=== PATIENT | female | born 1965 | race Caucasian/White ===

== ENCOUNTER 2021-03-01 05:16 | Inpatient (IN) | payer BC ==
[2021-02-25 12:53] VITALS: BMI 23.6
[2021-03-01] MEDS ORDERED: ACETAMINOPHEN INJECTION 100 ML IVPB ONE (13:08)
[2021-03-01] MEDS ORDERED: ACETAMINOPHEN 1000 MG/100 ML BAG IVPB ONE (13:10)
[2021-03-01] MEDS ORDERED: ONDANSETRON 4 MG/2 ML VIAL ONE (16:47)
[2021-03-01 18:11] LABS: BASO % 0.7 % (0-2.0); EOS % 2.4 % (0-4.5); HEMOGLOBIN 12.8 GM/dL (10.7-15.3); LYMPH % 18.3 % (8-40); MCH 30.6 pg (25.7-33.7); MCHC 34.7 g/dl (32.0-36.0); MEAN CELL VOLUME 88.2 fl (80-96); MEAN PLT VOLUME 7.4 fl (7.5-11.1); MONO % 10.6 % (3.8-10.2); PLATELET COUNT 291 10^3/uL (134-434); WHITE BLOOD COUNT 9.9 K/mm3 (4.0-10.0)
[2021-03-01 18:16] LABS: INR 1.03 (0.83-1.09); PROTHROMBIN TIME (PATIENT) 11.8 SEC (9.7-13.0)
[2021-03-01 18:19] LABS: ACTIVATED PTT 31.4 SECONDS (25.2-36.5)
[2021-03-01 18:39] LABS: N-TERMINAL BNP 45.4 pg/ml (5-125)
[2021-03-02] MEDS: PANTOPRAZOLE 40 MG TABLET PO SCH (09:41)
[2021-03-02] MEDS: ENOXAPARIN NA (PORCINE) 40 MG/0.4 ML DISP.SYRIN SQ SCH (09:41)
[2021-03-02] MEDS: BUPROPION HCL 100 MG PO SCH ×2 (10:06→21:16)
[2021-03-02 12:08] LABS: BASO % 1.3 % (0-2.0); EOS % 1.9 % (0-4.5); HEMATOCRIT 39.4 % (32.4-45.2); HEMOGLOBIN 13.1 GM/dL (10.7-15.3); LYMPH % 23.4 % (8-40); MCH 29.7 pg (25.7-33.7); MCHC 33.3 g/dl (32.0-36.0); MEAN PLT VOLUME 7.7 fl (7.5-11.1); MONO % 8.5 % (3.8-10.2); NEUT % 64.9 % (42.8-82.8); PLATELET COUNT 323 10^3/uL (134-434); RBC 4.43 M/mm3 (3.60-5.2); RDW 12.9 % (11.6-15.6); WHITE BLOOD COUNT 9.2 K/mm3 (4.0-10.0)
[2021-03-02 12:28] LABS: CALCIUM 9.2 mg/dL (8.5-10.1)
[2021-03-02 12:29] LABS: ALBUMIN 3.5 g/dl (3.4-5.0); BLOOD UREA NITROGEN 19.6 mg/dL (7-18)
[2021-03-02 12:32] LABS: CREATININE 0.8 mg/dL (0.55-1.3)
[2021-03-02 12:33] LABS: BILIRUBIN,TOTAL 0.4 mg/dL (0.2-1)
[2021-03-02 13:12] LABS: ACTIVATED PTT 43.5 SECONDS (25.2-36.5); INR 1.07 (0.83-1.09); PROTHROMBIN TIME (PATIENT) 12.3 SEC (9.7-13.0)
[2021-03-02] MEDS: AMOX TR/POT CLAV 875MG/125MG TABLETS (FP) PO SCH (17:51)
[2021-03-03] MEDS: AMOX TR/POT CLAV 875MG/125MG TABLETS (FP) PO SCH ×2 (07:44→17:40)
[2021-03-03] MEDS: BUPROPION HCL 100 MG PO SCH ×2 (09:20→21:47)
[2021-03-03] MEDS: ENOXAPARIN NA (PORCINE) 40 MG/0.4 ML DISP.SYRIN SQ SCH (09:21)
[2021-03-03] MEDS: PANTOPRAZOLE 40 MG TABLET PO SCH (09:21)
[2021-03-04] MEDS: AMOX TR/POT CLAV 875MG/125MG TABLETS (FP) PO SCH (08:02)
[2021-03-04] MEDS: ENOXAPARIN NA (PORCINE) 40 MG/0.4 ML DISP.SYRIN SQ SCH (09:55)
[2021-03-04] MEDS: BUPROPION HCL 100 MG PO SCH ×2 (09:55→21:05)
[2021-03-04] MEDS: PANTOPRAZOLE 40 MG TABLET PO SCH (09:55)
[2021-03-04] MEDS: CHLORHEXIDINE GLUCONATE 0.12% 15ML CUP MM SCH ×2 (15:46→21:05)
[2021-03-04] MEDS: LACTOBACILLUS ACIDOPHILUS 1 TABLET PO SCH (15:46)
[2021-03-04] MEDS: CLINDAMYCIN 600MG PREMIX IVPB 600 MG/50 ML BAG IVPB SCH (17:20)
[2021-03-05] MEDS: CLINDAMYCIN 600MG PREMIX IVPB 600 MG/50 ML BAG IVPB SCH ×3 (01:20→17:30)
[2021-03-05] MEDS: CHLORHEXIDINE GLUCONATE 0.12% 15ML CUP MM SCH ×2 (09:04→21:07)
[2021-03-05] MEDS: LACTOBACILLUS ACIDOPHILUS 1 TABLET PO SCH (09:05)
[2021-03-05] MEDS: PANTOPRAZOLE 40 MG TABLET PO SCH (09:05)
[2021-03-05] MEDS: BUPROPION HCL 100 MG PO SCH ×2 (09:06→21:07)
[2021-03-05] MEDS: ENOXAPARIN NA (PORCINE) 40 MG/0.4 ML DISP.SYRIN SQ SCH (09:07)
[2021-03-06] MEDS: CLINDAMYCIN 600MG PREMIX IVPB 600 MG/50 ML BAG IVPB SCH ×3 (01:03→18:16)
[2021-03-06] MEDS: PANTOPRAZOLE 40 MG TABLET PO SCH (10:49)
[2021-03-06] MEDS: ENOXAPARIN NA (PORCINE) 40 MG/0.4 ML DISP.SYRIN SQ SCH (10:49)
[2021-03-06] MEDS: LACTOBACILLUS ACIDOPHILUS 1 TABLET PO SCH (10:49)
[2021-03-06] MEDS: BUPROPION HCL 100 MG PO SCH ×2 (10:50→21:03)
[2021-03-06] MEDS: CHLORHEXIDINE GLUCONATE 0.12% 15ML CUP MM SCH ×2 (10:50→21:03)
[2021-03-07] MEDS: CLINDAMYCIN 600MG PREMIX IVPB 600 MG/50 ML BAG IVPB SCH ×3 (01:19→17:40)
[2021-03-07] MEDS ORDERED: guaiFENesin 200 MG/10 ML 10 ML UNIT-DOSE CUPS PO PRN (02:27)
[2021-03-07] MEDS: ACETAMINOPHEN 325 MG TABLET (FP) PO PRN ×2 (02:40→20:44)
[2021-03-07] MEDS: CHLORHEXIDINE GLUCONATE 0.12% 15ML CUP MM SCH ×2 (09:52→21:05)
[2021-03-07] MEDS: LACTOBACILLUS ACIDOPHILUS 1 TABLET PO SCH (09:52)
[2021-03-07] MEDS: PANTOPRAZOLE 40 MG TABLET PO SCH (09:52)
[2021-03-07] MEDS: ENOXAPARIN NA (PORCINE) 40 MG/0.4 ML DISP.SYRIN SQ SCH (09:52)
[2021-03-07] MEDS: BUPROPION HCL 100 MG PO SCH ×2 (09:54→21:05)
[2021-03-07] MEDS ORDERED: PATIENT'S OWN MEDICATION (NON-FORMULARY) (Omeprazole 20 MG Capsule.Dr) PO SCH (20:00)
[2021-03-08] MEDS: CLINDAMYCIN 600MG PREMIX IVPB 600 MG/50 ML BAG IVPB SCH ×3 (01:10→18:00)
[2021-03-08 07:14] LABS: EOS % 3.1 % (0-4.5); HEMATOCRIT 40.2 % (32.4-45.2); HEMOGLOBIN 13.5 GM/dL (10.7-15.3); LYMPH % 22.6 % (8-40); MCH 29.7 pg (25.7-33.7); MCHC 33.5 g/dl (32.0-36.0); MEAN CELL VOLUME 88.7 fl (80-96); MEAN PLT VOLUME 7.7 fl (7.5-11.1); MONO % 9.8 % (3.8-10.2); NEUT % 63.5 % (42.8-82.8); PLATELET COUNT 307 10^3/uL (134-434); RBC 4.53 M/mm3 (3.60-5.2); RDW 12.9 % (11.6-15.6); WHITE BLOOD COUNT 7.2 K/mm3 (4.0-10.0)
[2021-03-08 07:37] LABS: CALCIUM 9.5 mg/dL (8.5-10.1)
[2021-03-08 07:38] LABS: ALBUMIN 3.4 g/dl (3.4-5.0); BLOOD UREA NITROGEN 20.2 mg/dL (7-18)
[2021-03-08 07:41] LABS: CREATININE 0.9 mg/dL (0.55-1.3)
[2021-03-08 07:43] LABS: BILIRUBIN,TOTAL 0.3 mg/dL (0.2-1); TOT PROT 7.1 g/dl (6.4-8.2)
[2021-03-08] MEDS: LACTOBACILLUS ACIDOPHILUS 1 TABLET PO SCH (10:00)
[2021-03-08] MEDS: PANTOPRAZOLE 40 MG TABLET PO SCH (10:01)
[2021-03-08] MEDS: ENOXAPARIN NA (PORCINE) 40 MG/0.4 ML DISP.SYRIN SQ SCH (10:01)
[2021-03-08] MEDS: CHLORHEXIDINE GLUCONATE 0.12% 15ML CUP MM SCH ×2 (10:13→21:49)
[2021-03-08] MEDS: BUPROPION HCL 100 MG PO SCH ×2 (11:24→21:49)
[2021-03-09] MEDS: CLINDAMYCIN 600MG PREMIX IVPB 600 MG/50 ML BAG IVPB SCH ×2 (02:33→10:08)
[2021-03-09] MEDS: BUPROPION HCL 100 MG PO SCH (10:08)
[2021-03-09] MEDS: LACTOBACILLUS ACIDOPHILUS 1 TABLET PO SCH (10:08)
[2021-03-09] MEDS: PANTOPRAZOLE 40 MG TABLET PO SCH (10:08)
[2021-03-09] MEDS: CHLORHEXIDINE GLUCONATE 0.12% 15ML CUP MM SCH (10:08)
[2021-03-09 13:46] VITALS: BP 104/65; PULSE 78; TEMP 97.5
== END 2021-03-09 17:38 | disposition home or self-care (01) | DRG 201 ==
LOC: JRADIR 05:16 → JERBED 16:18 → J2C 16:38 → J4W 20:57
PROVIDERS: ADMIT Family Medicine; ATTEND Family Medicine
PROC: 0BBG3ZX Excision of Left Upper Lung Lobe, Percutaneous Approach, Diagnostic (ICD-10-PCS; 2021-03-01)
PROC: 0W9B30Z Drainage of Left Pleural Cavity with Drainage Device, Percutaneous Approach (ICD-10-PCS; principal; 2021-03-01 10:00)
DX: J93.9 Pneumothorax, unspecified (principal); K21.9 Gastro-esophageal reflux disease without esophagitis; R91.8 Other nonspecific abnormal finding of lung field; K05.10 Chronic gingivitis, plaque induced
CPT/HCPCS: 32408; 32557; 36415; 71045-TC-FY; 71046-TC-FY; 80053; 82550; 83880; 84484; 85025; 85027; 85610; 85730; 88305-TC; 93005; 93010; 94760; C9803; J0131; U0003; U0005

== ENCOUNTER 2021-12-01 14:39 | Observation (INO) | payer BC ==
[2021-12-01 14:51] VITALS: BMI 24.9
[2021-12-01] MEDS ORDERED: ASPIRIN 81 MG CHEWABLE TABLETS PO ONE (15:35)
[2021-12-01] MEDS ORDERED: ASPIRIN 81 MG CHEWABLE TABLETS ONE (16:01)
[2021-12-01 16:43] LABS: BASO % 0.4 % (0-2.0); EOS % 2.5 % (0-4.5); HEMATOCRIT 34.2 % (32.4-45.2); HEMOGLOBIN 11.7 GM/dL (10.7-15.3); LYMPH % 12.1 % (8-40); MCH 29.6 pg (25.7-33.7); MCHC 34.2 g/dl (32.0-36.0); MEAN CELL VOLUME 86.5 fl (80-96); MEAN PLT VOLUME 7.6 fl (7.5-11.1); MONO % 9.9 % (3.8-10.2); NEUT % 75.1 % (42.8-82.8); PLATELET COUNT 253 10^3/uL (134-434); RBC 3.95 M/mm3 (3.60-5.2); RDW 13.6 % (11.6-15.6); WHITE BLOOD COUNT 7.2 K/mm3 (4.0-10.0)
[2021-12-01 16:55] LABS: INR 1.03 (0.83-1.09); PROTHROMBIN TIME (PATIENT) 11.9 SEC (9.7-13.0)
[2021-12-01 16:56] LABS: CALCIUM 9.5 mg/dL (8.5-10.1)
[2021-12-01 16:57] LABS: ACTIVATED PTT 35.6 SECONDS (25.2-36.5); ALBUMIN 3.9 g/dl (3.4-5.0); BLOOD UREA NITROGEN 24.1 mg/dL (7-18)
[2021-12-01 17:01] LABS: TOT PROT 7.3 g/dl (6.4-8.2)
[2021-12-01 17:02] LABS: BILIRUBIN,TOTAL 0.3 mg/dL (0.2-1)
[2021-12-01] MEDS ORDERED: SODIUM CHLORIDE 0.9% 500 ML INFUS.BAG IV ONE (17:24)
[2021-12-01 20:02] VITALS: RESP 18
[2021-12-02 06:33] VITALS: BP 113/62; PULSE 61; TEMP 97.9
[2021-12-02] MEDS ORDERED: LEVOTHYROXINE NA 88 MCG TABLET (FP) PO ONE (08:22)
[2021-12-02] MEDS ORDERED: sitaGLIPtin PHOSPHATE 50 MG TABLET PO ONE (08:23)
[2021-12-02 08:30] LABS: BASO % 0.3 % (0-2.0); EOS % 4.2 % (0-4.5); HEMATOCRIT 33.3 % (32.4-45.2); HEMOGLOBIN 11.6 GM/dL (10.7-15.3); LYMPH % 21.6 % (8-40); MCH 29.9 pg (25.7-33.7); MCHC 34.9 g/dl (32.0-36.0); MEAN CELL VOLUME 85.9 fl (80-96); MEAN PLT VOLUME 7.8 fl (7.5-11.1); MONO % 12.6 % (3.8-10.2); NEUT % 61.3 % (42.8-82.8); PLATELET COUNT 255 10^3/uL (134-434); RBC 3.88 M/mm3 (3.60-5.2); RDW 13.5 % (11.6-15.6); WHITE BLOOD COUNT 5.2 K/mm3 (4.0-10.0)
[2021-12-02 08:41] LABS: CALCIUM 9.3 mg/dL (8.5-10.1)
[2021-12-02 08:42] LABS: ALBUMIN 3.5 g/dl (3.4-5.0); BLOOD UREA NITROGEN 21.4 mg/dL (7-18)
[2021-12-02 08:43] LABS: MAGNESIUM 2.4 mg/dL (1.8-2.4)
[2021-12-02 08:45] LABS: CREATININE 0.8 mg/dL (0.55-1.3)
[2021-12-02 08:46] LABS: BILIRUBIN,TOTAL 0.3 mg/dL (0.2-1); TOT PROT 6.6 g/dl (6.4-8.2)
[2021-12-02] MEDS ORDERED: PANTOPRAZOLE 40 MG TABLET PO ONE (09:26)
[2021-12-02] MEDS ORDERED: sitaGLIPtin PHOSPHATE 50 MG TABLET ONE (09:26)
[2021-12-02] MEDS ORDERED: LEVOTHYROXINE NA 88 MCG TABLET (FP) ONE (09:26)
[2021-12-02] MEDS ORDERED: ASPIRIN 81 MG CHEWABLE TABLETS ONE (09:26)
[2021-12-02] MEDS ORDERED: PANTOPRAZOLE 40 MG TABLET PO SCH (10:00)
[2021-12-02] MEDS ORDERED: ASPIRIN 81 MG CHEWABLE TABLETS PO SCH (10:00)
[2021-12-03] MEDS ORDERED: sitaGLIPtin PHOSPHATE 50 MG TABLET PO SCH (07:00)
[2021-12-03] MEDS ORDERED: LEVOTHYROXINE NA 88 MCG TABLET (FP) PO SCH (07:00)
== END 2021-12-02 16:00 | disposition home or self-care (01) ==
LOC: JER 14:39 → JERBED 15:55
PROVIDERS: ADMIT Internal Medicine; ATTEND Family Medicine
PROC: 3E0337Z Introduction of Electrolytic and Water Balance Substance into Peripheral Vein, Percutaneous Approach (ICD-10-PCS; principal; 2021-12-01)
DX: R07.9 Chest pain, unspecified (principal); K21.9 Gastro-esophageal reflux disease without esophagitis; E11.9 Type 2 diabetes mellitus without complications; E03.9 Hypothyroidism, unspecified; C34.90 Malignant neoplasm of unspecified part of unspecified bronchus or lung; Z86.16 Personal history of COVID-19; Z20.822 Contact with and (suspected) exposure to COVID-19; Z87.891 Personal history of nicotine dependence
CPT/HCPCS: 0241U-QW; 36415; 71046-TC-FY; 80053; 80061; 82550; 83735; 84439; 84443; 84484; 84703; 85025; 85610; 85730; 93005; 93010; 93351; 99285-25; G0378

== ENCOUNTER 2022-04-26 10:06 | Emergency (ER) | payer BC ==
[2022-04-26 12:22] LABS: BASO % 0.1 % (0-2.0); EOS % 2.2 % (0-4.5); HEMATOCRIT 36.5 % (32.4-45.2); HEMOGLOBIN 12.6 GM/dL (10.7-15.3); LYMPH % 8.5 % (8-40); MCH 29.2 pg (25.7-33.7); MCHC 34.5 g/dl (32.0-36.0); MEAN CELL VOLUME 84.4 fl (80-96); MEAN PLT VOLUME 7.6 fl (7.5-11.1); NEUT % 82.2 % (42.8-82.8); PLATELET COUNT 310 10^3/uL (134-434); RBC 4.32 M/mm3 (3.60-5.2); RDW 13.4 % (11.6-15.6); WHITE BLOOD COUNT 9.7 K/mm3 (4.0-10.0)
[2022-04-26 12:29] LABS: INR 1.01 (0.83-1.09); PROTHROMBIN TIME (PATIENT) 11.7 SEC (9.7-13.0)
[2022-04-26] MEDS ORDERED: ASPIRIN 81 MG CHEWABLE TABLETS PO ONE (12:59)
[2022-04-26] MEDS ORDERED: ASPIRIN 81 MG CHEWABLE TABLETS ONE (13:15)
[2022-04-26 13:30] VITALS: RESP 16
[2022-04-26 13:36] LABS: CHLORIDE 106 mmol/L (98-107); SODIUM 141 mmol/L (136-145)
[2022-04-26 13:38] LABS: CALCIUM 9.7 mg/dL (8.5-10.1)
[2022-04-26 13:39] LABS: ALBUMIN 3.7 g/dl (3.4-5.0); ANION GAP 8 MMOL/L (8-16); BLOOD UREA NITROGEN 28.5 mg/dL (7-18); CO2 27 mmol/L (21-32); GLUCOSE,RANDOM 163 mg/dL (74-106); MAGNESIUM 2.2 mg/dL (1.8-2.4)
[2022-04-26 13:42] LABS: CREATININE 1.1 mg/dL (0.55-1.3); SGOT/AST 18 U/L (15-37); SGPT/ALT 24 U/L (13-61)
[2022-04-26 13:43] LABS: BILIRUBIN,TOTAL 0.3 mg/dL (0.2-1)
[2022-04-26 13:44] LABS: TOT PROT 7.3 g/dl (6.4-8.2)
[2022-04-26 13:45] LABS: ALK PHOS 131 U/L (45-117)
[2022-04-26 13:59] VITALS: BMI 25.2
[2022-04-26] MEDS ORDERED: ATORVASTATIN CA 80 MG TABLET (FP) PO ONE (15:14)
[2022-04-26] MEDS ORDERED: HEPARIN NA (PORCINE) 5,000 UNITS/ML 1ML VIAL IVPUSH ONE (15:18)
[2022-04-26] MEDS ORDERED: CLOPIDOGREL BISULFATE 300 MG TABLET PO ONE (15:23)
[2022-04-26] MEDS ORDERED: HEPARIN INFUSION - 25,000 UNITS/500 ML INFUS.BAG IVPB SCH (15:30)
[2022-04-26] MEDS ORDERED: ATORVASTATIN CA 80 MG TABLET (FP) ONE (15:36)
[2022-04-26] MEDS ORDERED: HEPARIN NA (PORCINE) 5,000 UNITS/ML 1ML VIAL ONE (15:36)
[2022-04-26] MEDS ORDERED: CLOPIDOGREL BISULFATE 300 MG TABLET ONE (15:36)
[2022-04-26] MEDS ORDERED: HEPARIN NA (PORCINE) 5,000 UNITS/ML 1ML VIAL IVPUSH PRN ×2 (15:41)
[2022-04-26] MEDS ORDERED: HEPARIN INFUSION - 25,000 UNITS/500 ML INFUS.BAG IVPB ONE (16:08)
[2022-04-26 18:28] VITALS: BP 120/77; PULSE 80; TEMP 98.1
== END 2022-04-26 18:27 | disposition short-term general hospital (02) ==
LOC: JER 10:06
PROC: 3E033GC Introduction of Other Therapeutic Substance into Peripheral Vein, Percutaneous Approach (ICD-10-PCS; principal; 2022-04-26)
PROC: 3E033GC Introduction of Other Therapeutic Substance into Peripheral Vein, Percutaneous Approach (ICD-10-PCS; 2022-04-26)
DX: I21.4 Non-ST elevation (NSTEMI) myocardial infarction (principal); Z20.822 Contact with and (suspected) exposure to COVID-19
CPT/HCPCS: 0241U-QW; 36415; 71046-TC-FY; 80053; 82550; 83735; 84484; 84703; 85025; 85610; 85730; 93005; 93010; 99285-25; J1644

== ENCOUNTER 2022-06-27 05:42 | Observation (INO) | payer BC ==
[2022-06-27 05:45] VITALS: BMI 25.7
[2022-06-27] MEDS ORDERED: ASPIRIN 81 MG CHEWABLE TABLETS PO ONE (06:23)
[2022-06-27 06:34] LABS: BASO % 0.5 % (0-2.0); EOS % 3.7 % (0-4.5); HEMOGLOBIN 12.5 GM/dL (10.7-15.3); LYMPH % 20.2 % (8-40); MCH 29.7 pg (25.7-33.7); MCHC 34.7 g/dl (32.0-36.0); MEAN CELL VOLUME 85.4 fl (80-96); MEAN PLT VOLUME 8.2 fl (7.5-11.1); MONO % 11.1 % (3.8-10.2); NEUT % 64.5 % (42.8-82.8); PLATELET COUNT 272 10^3/uL (134-434); RBC 4.22 M/mm3 (3.60-5.2); RDW 13.4 % (11.6-15.6); WHITE BLOOD COUNT 6.5 K/mm3 (4.0-10.0)
[2022-06-27 06:37] LABS: INR 0.96 (0.83-1.09); PROTHROMBIN TIME (PATIENT) 11.1 SEC (9.7-13.0)
[2022-06-27 06:40] LABS: ACTIVATED PTT 32.6 SECONDS (25.2-36.5)
[2022-06-27] MEDS ORDERED: ASPIRIN 81 MG CHEWABLE TABLETS ONE (06:49)
[2022-06-27 06:54] LABS: POTASSIUM 3.7 mmol/L (3.5-5.1)
[2022-06-27 06:56] LABS: ALBUMIN 3.8 g/dl (3.4-5.0); CALCIUM 9.4 mg/dL (8.5-10.1); MAGNESIUM 2.1 mg/dL (1.8-2.4)
[2022-06-27 07:00] LABS: CREATININE 1.1 mg/dL (0.55-1.3); PHOSPHOROUS 3.8 mg/dL (2.5-4.9); TOT PROT 7.3 g/dl (6.4-8.2)
[2022-06-27 07:02] LABS: BILIRUBIN,TOTAL 0.2 mg/dL (0.2-1)
[2022-06-27] MEDS ORDERED: ACETAMINOPHEN 325 MG TABLET (FP) PO PRN (08:43)
[2022-06-27] MEDS ORDERED: ASPIRIN COATED 81 MG TABLET.EC ONE (09:36)
[2022-06-27] MEDS ORDERED: buPROPion HCL 100 MG TABLET ONE (09:36)
[2022-06-27] MEDS ORDERED: PANTOPRAZOLE 40 MG TABLET PO ONE (09:36)
[2022-06-27] MEDS: PANTOPRAZOLE 40 MG TABLET PO SCH (09:42)
[2022-06-27] MEDS: sitaGLIPtin PHOSPHATE 50 MG TABLET PO SCH (09:42)
[2022-06-27] MEDS: buPROPion HCL 100 MG TABLET PO SCH ×2 (09:42→22:05)
[2022-06-27] MEDS: ASPIRIN COATED 81 MG TABLET.EC PO SCH (09:42)
[2022-06-27] MEDS: INSULIN SLIDING SCALE (NOVOLOG) 1 VIAL SQ SCH ×3 (10:38→21:34)
[2022-06-28] MEDS: sitaGLIPtin PHOSPHATE 50 MG TABLET PO SCH (06:35)
[2022-06-28] MEDS: PANTOPRAZOLE 40 MG TABLET PO SCH ×2 (06:36→09:26)
[2022-06-28] MEDS: INSULIN SLIDING SCALE (NOVOLOG) 1 VIAL SQ SCH ×2 (06:39→11:18)
[2022-06-28] MEDS ORDERED: LEVOTHYROXINE NA 88 MCG TABLET (FP) PO SCH (07:00)
[2022-06-28 07:51] LABS: HEMATOCRIT 34.3 % (32.4-45.2); HEMOGLOBIN 11.9 GM/dL (10.7-15.3); MCH 29.6 pg (25.7-33.7); MCHC 34.8 g/dl (32.0-36.0); MEAN PLT VOLUME 8.3 fl (7.5-11.1); PLATELET COUNT 237 10^3/uL (134-434); RBC 4.03 M/mm3 (3.60-5.2); RDW 13.3 % (11.6-15.6); WHITE BLOOD COUNT 7.4 K/mm3 (4.0-10.0)
[2022-06-28 08:11] LABS: POTASSIUM 3.6 mmol/L (3.5-5.1)
[2022-06-28 08:21] LABS: CALCIUM 9.4 mg/dL (8.5-10.1)
[2022-06-28 08:22] LABS: ALBUMIN 3.6 g/dl (3.4-5.0); BLOOD UREA NITROGEN 24.5 mg/dL (7-18)
[2022-06-28 08:26] LABS: BILIRUBIN,TOTAL 0.4 mg/dL (0.2-1); TOT PROT 6.7 g/dl (6.4-8.2)
[2022-06-28] MEDS: buPROPion HCL 100 MG TABLET PO SCH (09:26)
[2022-06-28] MEDS: ASPIRIN COATED 81 MG TABLET.EC PO SCH (09:26)
[2022-06-28] MEDS ORDERED: ATORVASTATIN CA 40 MG TABLET (FP) PO ONE (09:59)
[2022-06-28] MEDS ORDERED: metoPROLOL SUCCINATE 25 MG TAB.SR.24H (FP) PO SCH (10:00)
[2022-06-28] MEDS ORDERED: NITROGLYCERIN 2% OINTMENT - 1GM PACKET TD SCH (12:00)
[2022-06-28 12:55] VITALS: BP 114/75; PULSE 68; RESP 18; TEMP 98.2
[2022-06-28] MEDS ORDERED: ATORVASTATIN CA 40 MG TABLET (FP) PO SCH (22:00)
== END 2022-06-28 14:33 | disposition short-term general hospital (02) ==
LOC: JER 05:42 → JERBED 07:25 → J4W 12:31
PROVIDERS: ADMIT Family Medicine; ATTEND Family Medicine
DX: I25.119 Atherosclerotic heart disease of native coronary artery with unspecified angina pectoris (principal); R07.9 Chest pain, unspecified; K21.9 Gastro-esophageal reflux disease without esophagitis; R91.8 Other nonspecific abnormal finding of lung field; E11.9 Type 2 diabetes mellitus without complications; Z85.118 Personal history of other malignant neoplasm of bronchus and lung; E03.9 Hypothyroidism, unspecified; Z87.891 Personal history of nicotine dependence
CPT/HCPCS: 36415; 71046-TC-FY; 80053; 80061; 82962; 83036; 83735; 83880; 84100; 84484; 85025; 85027; 85610; 85730; 93005; 93010; 99285-25; C9803-CS; G0378; U0003; U0005

== ENCOUNTER 2022-08-29 14:33 | Observation (INO) | payer BC ==
[2022-08-29 14:41] VITALS: BMI 25.7
[2022-08-29] MEDS ORDERED: ACETAMINOPHEN 1000 MG/100 ML BAG IVPB ONE (15:18)
[2022-08-29] MEDS ORDERED: MAG HYDROX/AL HYDROX/SIMETH 30 ML UNIT-DOSE CUP PO ONE (15:19)
[2022-08-29] MEDS ORDERED: FAMOTIDINE 20 MG/50 ML IVPB 20 MG/50 ML MG IVPB ONE ×2 (15:19→15:55)
[2022-08-29] MEDS ORDERED: ACETAMINOPHEN INJECTION 100 ML IVPB ONE (15:55)
[2022-08-29] MEDS ORDERED: MAG HYDROX/AL HYDROX/SIMETH 30 ML UNIT-DOSE CUP ONE (15:55)
[2022-08-29 16:11] LABS: BASO % 0.4 % (0-2.0); EOS % 2.8 % (0-4.5); HEMOGLOBIN 12.4 GM/dL (10.7-15.3); LYMPH % 18.2 % (8-40); MCH 29.1 pg (25.7-33.7); MCHC 34.3 g/dl (32.0-36.0); MEAN CELL VOLUME 84.7 fl (80-96); MEAN PLT VOLUME 7.7 fl (7.5-11.1); MONO % 9.1 % (3.8-10.2); NEUT % 69.5 % (42.8-82.8); PLATELET COUNT 288 10^3/uL (134-434); RBC 4.25 M/mm3 (3.60-5.2); RDW 13.9 % (11.6-15.6); WHITE BLOOD COUNT 7.3 K/mm3 (4.0-10.0)
[2022-08-29 16:18] LABS: INR 1.1 (0.83-1.09); PROTHROMBIN TIME (PATIENT) 12.7 SEC (9.7-13.0)
[2022-08-29 16:21] LABS: ACTIVATED PTT 28.7 SECONDS (25.2-36.5)
[2022-08-29 16:22] LABS: POTASSIUM 3.9 mmol/L (3.5-5.1)
[2022-08-29 16:24] LABS: BLOOD UREA NITROGEN 24.1 mg/dL (7-18); CALCIUM 9.8 mg/dL (8.5-10.1); MAGNESIUM 2.5 mg/dL (1.8-2.4)
[2022-08-29 16:27] LABS: CREATININE 1.2 mg/dL (0.55-1.3)
[2022-08-29 16:29] LABS: BILIRUBIN,TOTAL 0.4 mg/dL (0.2-1); TOT PROT 7.5 g/dl (6.4-8.2)
[2022-08-29] MEDS ORDERED: ASPIRIN 81 MG CHEWABLE TABLETS PO ONE (19:22)
[2022-08-29] MEDS ORDERED: ASPIRIN 81 MG CHEWABLE TABLETS ONE (19:52)
[2022-08-29] MEDS ORDERED: ALBUTEROL SO4 HFA INHALER IH PRN (22:39)
[2022-08-29] MEDS ORDERED: RANOLAZINE E.R. 500 MG TABLET (FP) ONE (23:10)
[2022-08-29] MEDS ORDERED: INSULIN (NOVOLOG) ASPART 100 UNITS/ML 10ML VIAL ONE (23:12)
[2022-08-29] MEDS: INSULIN SLIDING SCALE (NOVOLOG) 1 VIAL SQ SCH (23:19)
[2022-08-29] MEDS: RANOLAZINE E.R. 500 MG TABLET (FP) PO SCH (23:19)
[2022-08-30] MEDS ORDERED: PANTOPRAZOLE SODIUM 40 MG VIAL IVPUSH ONE (05:02)
[2022-08-30] MEDS ORDERED: MAG HYDROX/AL HYDROX/SIMETH 30 ML UNIT-DOSE CUP PO ONE (05:03)
[2022-08-30 05:44] LABS: BASO % 0.9 % (0-2.0); HEMATOCRIT 36.1 % (32.4-45.2); HEMOGLOBIN 12.3 GM/dL (10.7-15.3); LYMPH % 21.7 % (8-40); MCH 29.3 pg (25.7-33.7); MCHC 34.2 g/dl (32.0-36.0); MEAN CELL VOLUME 85.7 fl (80-96); MEAN PLT VOLUME 7.7 fl (7.5-11.1); MONO % 9.8 % (3.8-10.2); NEUT % 64.6 % (42.8-82.8); PLATELET COUNT 286 10^3/uL (134-434); RBC 4.21 M/mm3 (3.60-5.2); RDW 13.5 % (11.6-15.6); WHITE BLOOD COUNT 6.3 K/mm3 (4.0-10.0)
[2022-08-30] MEDS: MAG HYDROX/AL HYDROX/SIMETH 30 ML UNIT-DOSE CUP PO SCH ×2 (06:00→12:46)
[2022-08-30] MEDS ORDERED: INSULIN SLIDING SCALE (NOVOLOG) 1 VIAL SQ ONE (06:02)
[2022-08-30 06:03] LABS: POTASSIUM 3.8 mmol/L (3.5-5.1)
[2022-08-30 06:05] LABS: CALCIUM 9.3 mg/dL (8.5-10.1)
[2022-08-30 06:06] LABS: ALBUMIN 3.9 g/dl (3.4-5.0)
[2022-08-30] MEDS: INSULIN SLIDING SCALE (NOVOLOG) 1 VIAL SQ SCH ×2 (06:07→12:46)
[2022-08-30 06:09] LABS: CREATININE 1.2 mg/dL (0.55-1.3)
[2022-08-30 06:11] LABS: BILIRUBIN,TOTAL 0.4 mg/dL (0.2-1); TOT PROT 7.5 g/dl (6.4-8.2)
[2022-08-30] MEDS ORDERED: LEVOTHYROXINE NA 88 MCG TABLET (FP) PO SCH (07:00)
[2022-08-30] MEDS ORDERED: ROSUVASTATIN CA 10 MG TABLET PO SCH (10:00)
[2022-08-30] MEDS ORDERED: ASPIRIN COATED 81 MG TABLET.EC PO SCH (10:00)
[2022-08-30] MEDS ORDERED: ISOSORBIDE MONONITRATE 60 MG TAB.SR.24H (FP) PO SCH (10:00)
[2022-08-30] MEDS ORDERED: EMPAGLIFLOZIN 10 MG PO SCH (10:00)
[2022-08-30] MEDS ORDERED: metoPROLOL SUCCINATE 25 MG TAB.SR.24H (FP) PO SCH (10:00)
[2022-08-30] MEDS ORDERED: PANTOPRAZOLE SODIUM 40 MG VIAL IVPUSH SCH (10:00)
[2022-08-30] MEDS ORDERED: buPROPion HCL 100 MG TABLET PO SCH (10:00)
[2022-08-30] MEDS ORDERED: CLOPIDOGREL BISULFATE 75 MG TABLET (FP) PO SCH (10:00)
[2022-08-30] MEDS: RANOLAZINE E.R. 500 MG TABLET (FP) PO SCH (11:20)
[2022-08-30 13:10] VITALS: RESP 18
[2022-08-30] MEDS ORDERED: PANTOPRAZOLE 40 MG TABLET PO SCH (14:50)
[2022-08-30 16:21] VITALS: BP 106/61; PULSE 63; TEMP 98
== END 2022-08-30 16:47 | disposition short-term general hospital (02) ==
LOC: JER 14:33 → JERBED 18:14 → J4S 08-30 00:20
PROVIDERS: ADMIT Internal Medicine; ATTEND Family Medicine
PROC: 3E033NZ Introduction of Analgesics, Hypnotics, Sedatives into Peripheral Vein, Percutaneous Approach (ICD-10-PCS; principal; 2022-08-29)
PROC: 3E033GC Introduction of Other Therapeutic Substance into Peripheral Vein, Percutaneous Approach (ICD-10-PCS; 2022-08-29)
DX: R07.9 Chest pain, unspecified (principal); K21.9 Gastro-esophageal reflux disease without esophagitis; E03.9 Hypothyroidism, unspecified; E11.9 Type 2 diabetes mellitus without complications; Z86.16 Personal history of COVID-19; C34.00 Malignant neoplasm of unspecified main bronchus; Z79.899 Other long term (current) drug therapy; I25.10 Atherosclerotic heart disease of native coronary artery without angina pectoris; I25.2 Old myocardial infarction; Z95.5 Presence of coronary angioplasty implant and graft; K76.0 Fatty (change of) liver, not elsewhere classified
CPT/HCPCS: 0241U-QW; 36415; 71045-TC-FY; 71275-TC; 76705-TC; 80053; 80061; 82550; 82962; 83690; 83735; 84484; 85025; 85379; 85610; 85730; 86850; 86900; 86901; 93005; 93010; 93306-TC; 99285-25; G0378; Q9967

== ENCOUNTER 2022-11-10 20:42 | Observation (INO) | payer BC ==
[2022-11-10] MEDS ORDERED: VERAPAMIL HCL 120 MG E.R. TABLET PO ONE (21:12)
[2022-11-10] MEDS ORDERED: VERAPAMIL HCL 180 MG E.R. TABLET PO ONE (21:13)
[2022-11-10] MEDS ORDERED: ASPIRIN 325 MG TABLET PO ONE (21:38)
[2022-11-10] MEDS ORDERED: PANTOPRAZOLE SODIUM 40 MG VIAL IVPUSH ONE (21:41)
[2022-11-10] MEDS ORDERED: ASPIRIN 325 MG TABLET ONE (21:44)
[2022-11-10] MEDS ORDERED: PANTOPRAZOLE SODIUM 40 MG/100 ML BAG IVPB ONE (21:44)
[2022-11-10] MEDS ORDERED: PANTOPRAZOLE SODIUM 40 MG VIAL ONE (21:49)
[2022-11-10 21:52] LABS: HEMATOCRIT 36.1 % (32.4-45.2); HEMOGLOBIN 12.7 GM/dL (10.7-15.3); MCH 29.7 pg (25.7-33.7); MCHC 35.1 g/dl (32.0-36.0); MEAN CELL VOLUME 84.6 fl (80-96); MEAN PLT VOLUME 7.7 fl (7.5-11.1); PLATELET COUNT 329 10^3/uL (134-434); RBC 4.26 M/mm3 (3.60-5.2); RDW 13.8 % (11.6-15.6); WHITE BLOOD COUNT 9.4 K/mm3 (4.0-10.0)
[2022-11-10 22:05] LABS: INR 1.01 (0.83-1.09); PROTHROMBIN TIME (PATIENT) 11.7 SEC (9.7-13.0)
[2022-11-10 22:07] LABS: ACTIVATED PTT 33.1 SECONDS (25.2-36.5)
[2022-11-10 22:08] LABS: ALBUMIN 3.6 g/dl (3.4-5.0); CALCIUM 9.4 mg/dL (8.5-10.1); MAGNESIUM 2.2 mg/dL (1.8-2.4)
[2022-11-10 22:11] LABS: CREATININE 1.3 mg/dL (0.55-1.3)
[2022-11-10 22:13] LABS: BILIRUBIN,TOTAL 0.4 mg/dL (0.2-1)
[2022-11-10 22:55] LABS: ANISOCYTOSIS 0; MACROCYTOSIS 0
[2022-11-10] MEDS ORDERED: DOCUSATE SODIUM 100 MG CAPSULE (FP) PO PRN (23:51)
[2022-11-11] MEDS ORDERED: ACETAMINOPHEN 1000 MG/100 ML BAG IVPB PRN (00:02)
[2022-11-11 01:30] LABS: PHOSPHOROUS 3.6 mg/dL (2.5-4.9)
[2022-11-11 08:27] LABS: BASO % 0.4 % (0-2.0); EOS % 2.8 % (0-4.5); HEMATOCRIT 36.4 % (32.4-45.2); LYMPH % 18.9 % (8-40); MCH 28.6 pg (25.7-33.7); MCHC 33.1 g/dl (32.0-36.0); MEAN CELL VOLUME 86.5 fl (80-96); MEAN PLT VOLUME 7.5 fl (7.5-11.1); MONO % 9.7 % (3.8-10.2); NEUT % 68.2 % (42.8-82.8); PLATELET COUNT 291 10^3/uL (134-434); RBC 4.21 M/mm3 (3.60-5.2); RDW 13.2 % (11.6-15.6); WHITE BLOOD COUNT 7.4 K/mm3 (4.0-10.0)
[2022-11-11 08:55] LABS: CREATININE 1.1 mg/dL (0.55-1.3)
[2022-11-11] MEDS ORDERED: NITROGLYCERIN SUBLINGUAL 1/150 0.4 MG TAB SL PRN (09:45)
[2022-11-11] MEDS ORDERED: LEVOTHYROXINE NA 88 MCG TABLET (FP) ONE (11:29)
[2022-11-11] MEDS ORDERED: ISOSORBIDE MONONITRATE 60 MG TAB.SR.24H (FP) PO ONE ×2 (11:29→11:36)
[2022-11-11] MEDS ORDERED: ASPIRIN COATED 81 MG TABLET.EC ONE (11:29)
[2022-11-11] MEDS ORDERED: PANTOPRAZOLE 40 MG TABLET PO ONE (11:29)
[2022-11-11] MEDS ORDERED: buPROPion HCL 100 MG TABLET ONE (11:30)
[2022-11-11] MEDS ORDERED: RANOLAZINE E.R. 500 MG TABLET (FP) ONE (11:30)
[2022-11-11] MEDS ORDERED: CLOPIDOGREL BISULFATE 75 MG TABLET (FP) ONE (11:30)
[2022-11-11] MEDS: PANTOPRAZOLE 40 MG TABLET PO SCH (11:39)
[2022-11-11] MEDS: ISOSORBIDE MONONITRATE 60 MG TAB.SR.24H (FP) PO SCH (11:39)
[2022-11-11] MEDS: RANOLAZINE E.R. 500 MG TABLET (FP) PO SCH ×2 (11:39→22:54)
[2022-11-11] MEDS: buPROPion HCL 100 MG TABLET PO SCH (11:39)
[2022-11-11] MEDS: CLOPIDOGREL BISULFATE 75 MG TABLET (FP) PO SCH (11:39)
[2022-11-11] MEDS: ASPIRIN COATED 81 MG TABLET.EC PO SCH (11:39)
[2022-11-11] MEDS: LEVOTHYROXINE NA 88 MCG TABLET (FP) PO SCH (11:39)
[2022-11-11] MEDS ORDERED: ACETAMINOPHEN 325 MG TABLET (FP) ONE (19:59)
[2022-11-11] MEDS: ACETAMINOPHEN 325 MG TABLET (FP) PO PRN (20:03)
[2022-11-11] MEDS: VERAPAMIL HCL 180 MG E.R. TABLET PO SCH (22:55)
[2022-11-11] MEDS: ATORVASTATIN CA 40 MG TABLET (FP) PO SCH (22:58)
[2022-11-12 02:59] VITALS: BMI 26.6
[2022-11-12] MEDS: LEVOTHYROXINE NA 88 MCG TABLET (FP) PO SCH (06:56)
[2022-11-12] MEDS: PANTOPRAZOLE 40 MG TABLET PO SCH (09:12)
[2022-11-12] MEDS: CLOPIDOGREL BISULFATE 75 MG TABLET (FP) PO SCH (09:12)
[2022-11-12] MEDS: ISOSORBIDE MONONITRATE 60 MG TAB.SR.24H (FP) PO SCH (09:12)
[2022-11-12] MEDS: buPROPion HCL 100 MG TABLET PO SCH (09:12)
[2022-11-12] MEDS: RANOLAZINE E.R. 500 MG TABLET (FP) PO SCH ×2 (09:12→21:37)
[2022-11-12] MEDS: ASPIRIN COATED 81 MG TABLET.EC PO SCH (09:12)
[2022-11-12] MEDS ORDERED: morphine CARPU-JECT 4 MG/1 ML DISP.SYRIN IVPUSH ONE ×2 (19:26)
[2022-11-12] MEDS ORDERED: VERAPAMIL HCL 180 MG E.R. TABLET PO ONE (19:35)
[2022-11-12] MEDS ORDERED: ACETAMINOPHEN 1000 MG/100 ML BAG IVPB ONE (19:41)
[2022-11-12] MEDS: ATORVASTATIN CA 40 MG TABLET (FP) PO SCH (21:36)
[2022-11-12] MEDS: VERAPAMIL HCL 180 MG E.R. TABLET PO SCH (21:39)
[2022-11-12] MEDS: METHYL SALICYLATE/MENTHOL OINT 30 GM TUBE TP SCH (22:51)
[2022-11-13] MEDS: LEVOTHYROXINE NA 88 MCG TABLET (FP) PO SCH (06:06)
[2022-11-13] MEDS: ACETAMINOPHEN 325 MG TABLET (FP) PO PRN (08:10)
[2022-11-13] MEDS: ISOSORBIDE MONONITRATE 60 MG TAB.SR.24H (FP) PO SCH (09:00)
[2022-11-13] MEDS: RANOLAZINE E.R. 500 MG TABLET (FP) PO SCH ×2 (09:51→21:12)
[2022-11-13] MEDS: CLOPIDOGREL BISULFATE 75 MG TABLET (FP) PO SCH (09:51)
[2022-11-13] MEDS: PANTOPRAZOLE 40 MG TABLET PO SCH (09:51)
[2022-11-13] MEDS: buPROPion HCL 100 MG TABLET PO SCH (09:51)
[2022-11-13] MEDS: ASPIRIN COATED 81 MG TABLET.EC PO SCH (09:51)
[2022-11-13] MEDS: METHYL SALICYLATE/MENTHOL OINT 30 GM TUBE TP SCH ×2 (09:53→22:09)
[2022-11-13] MEDS ORDERED: ASPIRIN 325 MG TABLET PO ONE (19:28)
[2022-11-13] MEDS: ATORVASTATIN CA 40 MG TABLET (FP) PO SCH (21:12)
[2022-11-13] MEDS: VERAPAMIL HCL 180 MG E.R. TABLET PO SCH (21:12)
[2022-11-14] MEDS: LEVOTHYROXINE NA 88 MCG TABLET (FP) PO SCH (06:20)
[2022-11-14] MEDS ORDERED: RANOLAZINE E.R. 500 MG TABLET (FP) PO SCH (09:09)
[2022-11-14] MEDS: CLOPIDOGREL BISULFATE 75 MG TABLET (FP) PO SCH (10:00)
[2022-11-14] MEDS: PANTOPRAZOLE 40 MG TABLET PO SCH (10:00)
[2022-11-14] MEDS: ASPIRIN COATED 81 MG TABLET.EC PO SCH (10:00)
[2022-11-14] MEDS: ISOSORBIDE MONONITRATE 60 MG TAB.SR.24H (FP) PO SCH (10:00)
[2022-11-14] MEDS: buPROPion HCL 100 MG TABLET PO SCH (10:01)
[2022-11-14] MEDS: METHYL SALICYLATE/MENTHOL OINT 30 GM TUBE TP SCH (10:02)
[2022-11-14 14:18] VITALS: BP 103/74; PULSE 62; RESP 24; TEMP 97.4
== END 2022-11-14 11:03 | disposition home or self-care (01) ==
LOC: JER 20:42 → JERBED 22:54 → J4W 11-11 20:39
PROVIDERS: ADMIT Internal Medicine; ATTEND Family Medicine
PROC: 3E033NZ Introduction of Analgesics, Hypnotics, Sedatives into Peripheral Vein, Percutaneous Approach (ICD-10-PCS; principal; 2022-11-10)
PROC: 3E033GC Introduction of Other Therapeutic Substance into Peripheral Vein, Percutaneous Approach (ICD-10-PCS; 2022-11-10)
DX: I25.10 Atherosclerotic heart disease of native coronary artery without angina pectoris (principal); C34.90 Malignant neoplasm of unspecified part of unspecified bronchus or lung; K21.9 Gastro-esophageal reflux disease without esophagitis; R94.31 Abnormal electrocardiogram [ECG] [EKG]; E78.00 Pure hypercholesterolemia, unspecified; N20.0 Calculus of kidney; R00.0 Tachycardia, unspecified; R25.2 Cramp and spasm; I25.2 Old myocardial infarction; E11.9 Type 2 diabetes mellitus without complications; Z86.16 Personal history of COVID-19; R07.9 Chest pain, unspecified; K76.0 Fatty (change of) liver, not elsewhere classified; E03.9 Hypothyroidism, unspecified; R91.8 Other nonspecific abnormal finding of lung field; E06.3 Autoimmune thyroiditis; Z87.891 Personal history of nicotine dependence; Z95.5 Presence of coronary angioplasty implant and graft
CPT/HCPCS: 36415; 71045-TC-FY; 80048; 80053; 80061; 82550; 82962; 83735; 84100; 84443; 84484; 85025; 85610; 85730; 93005; 93010; 99285-25; G0378

== ENCOUNTER 2023-04-16 16:07 | Observation (INO) | payer BC ==
[2023-04-16 16:31] VITALS: BMI 30.2
[2023-04-16] MEDS ORDERED: ACETAMINOPHEN INJECTION 100 ML IVPB ONE (17:08)
[2023-04-16] MEDS: ACETAMINOPHEN 1000 MG/100 ML BAG IVPB ONE (17:15)
[2023-04-16 17:16] LABS: BASO % 0.9 % (0-2.0); EOS % 1.9 % (0-4.5); HEMATOCRIT 37.7 % (32.4-45.2); HEMOGLOBIN 12.7 GM/dL (10.7-15.3); LYMPH % 17.9 % (8-40); MCH 29.9 pg (25.7-33.7); MCHC 33.7 g/dl (32.0-36.0); MEAN CELL VOLUME 88.7 fl (80-96); MEAN PLT VOLUME 7.4 fl (7.5-11.1); MONO % 10.3 % (3.8-10.2); PLATELET COUNT 262 10^3/uL (134-434); RBC 4.25 M/mm3 (3.60-5.2); RDW 14.1 % (11.6-15.6); WHITE BLOOD COUNT 7.4 K/mm3 (4.0-10.0)
[2023-04-16 17:21] LABS: INR 1.04 (0.83-1.09); PROTHROMBIN TIME (PATIENT) 12.1 SEC (9.7-13.0)
[2023-04-16 17:23] LABS: ACTIVATED PTT 33.8 SECONDS (25.2-36.5)
[2023-04-16 17:35] LABS: POTASSIUM 3.8 mmol/L (3.5-5.1)
[2023-04-16 17:37] LABS: ALBUMIN 3.8 g/dl (3.4-5.0); CALCIUM 9.1 mg/dL (8.5-10.1)
[2023-04-16 17:38] LABS: BLOOD UREA NITROGEN 29.4 mg/dL (7-18)
[2023-04-16 17:42] LABS: BILIRUBIN,TOTAL 0.3 mg/dL (0.2-1); TOT PROT 7.3 g/dl (6.4-8.2)
[2023-04-16 17:45] LABS: N-TERMINAL BNP 230.8 pg/ml (5-125)
[2023-04-16] MEDS ORDERED: RANOLAZINE E.R. 500 MG TABLET (FP) ONE (20:53)
[2023-04-16] MEDS ORDERED: CLOPIDOGREL BISULFATE 75 MG TABLET (FP) ONE (20:53)
[2023-04-16] MEDS ORDERED: NITROGLYCERIN SUBLINGUAL 1/150 0.4 MG TAB ONE (21:32)
[2023-04-16] MEDS: VERAPAMIL HCL 120 MG TABLET PO ONE (21:50)
[2023-04-16] MEDS: CLOPIDOGREL BISULFATE 75 MG TABLET (FP) PO ONE (21:50)
[2023-04-16] MEDS: buPROPion HCL 100 MG TABLET PO ONE (21:50)
[2023-04-16] MEDS: RANOLAZINE E.R. 1,000 MG TABLET (FP) PO ONE (21:50)
[2023-04-16] MEDS: EMPAGLIFLOZIN (JARDIANCE) 10 MG TABLET PO SCH (21:50)
[2023-04-16] MEDS: NITROGLYCERIN SUBLINGUAL 1/150 0.4 MG TAB SL ONE (22:17)
[2023-04-17] MEDS ORDERED: PANTOPRAZOLE 40 MG TABLET PO ONE (06:07)
[2023-04-17] MEDS ORDERED: LEVOTHYROXINE NA 88 MCG TABLET (FP) ONE (06:08)
[2023-04-17] MEDS: LEVOTHYROXINE NA 88 MCG TABLET (FP) PO SCH (06:11)
[2023-04-17] MEDS: PANTOPRAZOLE 40 MG TABLET PO SCH (06:11)
[2023-04-17 07:34] LABS: BASO % 0.5 % (0-2.0); EOS % 2.6 % (0-4.5); HEMATOCRIT 39.5 % (32.4-45.2); HEMOGLOBIN 13.7 GM/dL (10.7-15.3); MCH 30.6 pg (25.7-33.7); MCHC 34.7 g/dl (32.0-36.0); MEAN CELL VOLUME 88.1 fl (80-96); MEAN PLT VOLUME 7.3 fl (7.5-11.1); MONO % 9.1 % (3.8-10.2); NEUT % 68.8 % (42.8-82.8); PLATELET COUNT 279 10^3/uL (134-434); RBC 4.48 M/mm3 (3.60-5.2); RDW 14.2 % (11.6-15.6); WHITE BLOOD COUNT 5.9 K/mm3 (4.0-10.0)
[2023-04-17 07:44] LABS: CALCIUM 9.6 mg/dL (8.5-10.1)
[2023-04-17 07:45] LABS: ALBUMIN 3.7 g/dl (3.4-5.0); BLOOD UREA NITROGEN 25.7 mg/dL (7-18)
[2023-04-17 07:48] LABS: BILIRUBIN,TOTAL 0.3 mg/dL (0.2-1); CREATININE 1.1 mg/dL (0.55-1.3)
[2023-04-17 07:51] LABS: TOT PROT 7.1 g/dl (6.4-8.2)
[2023-04-17] MEDS ORDERED: metoPROLOL SUCCINATE 25 MG TAB.SR.24H (FP) PO ONE (09:32)
[2023-04-17] MEDS: VERAPAMIL HCL 120 MG TABLET PO SCH (09:35)
[2023-04-17] MEDS: metoPROLOL SUCCINATE 25 MG TAB.SR.24H (FP) PO SCH (09:35)
[2023-04-17] MEDS: ISOSORBIDE MONONITRATE 60 MG TAB.SR.24H (FP) PO SCH (09:35)
[2023-04-17] MEDS: CLOPIDOGREL BISULFATE 75 MG TABLET (FP) PO SCH (09:35)
[2023-04-17] MEDS: ASPIRIN COATED 81 MG TABLET.EC PO SCH (09:35)
[2023-04-17] MEDS: RANOLAZINE E.R. 500 MG TABLET (FP) PO SCH (09:35)
[2023-04-17] MEDS ORDERED: LEVOTHYROXINE NA 100 MCG TABLET (FP) PO SCH (13:10)
[2023-04-17 15:06] VITALS: RESP 16
[2023-04-17 16:49] VITALS: BP 111/54; PULSE 65; TEMP 98
[2023-04-17] MEDS ORDERED: ROSUVASTATIN CA 10 MG TABLET PO SCH (22:00)
== END 2023-04-17 18:08 | disposition home or self-care (01) ==
LOC: JER 16:07 → JERBED 20:13
PROVIDERS: ADMIT Internal Medicine; ATTEND Family Medicine
PROC: 3E033NZ Introduction of Analgesics, Hypnotics, Sedatives into Peripheral Vein, Percutaneous Approach (ICD-10-PCS; principal; 2023-04-16)
DX: R07.89 Other chest pain (principal); I25.10 Atherosclerotic heart disease of native coronary artery without angina pectoris; E78.5 Hyperlipidemia, unspecified; K21.9 Gastro-esophageal reflux disease without esophagitis; Z85.118 Personal history of other malignant neoplasm of bronchus and lung; I11.0 Hypertensive heart disease with heart failure; E03.9 Hypothyroidism, unspecified; E11.9 Type 2 diabetes mellitus without complications; Z86.16 Personal history of COVID-19; Z95.5 Presence of coronary angioplasty implant and graft
CPT/HCPCS: 0241U-QW; 36415; 71275-TC; 80053; 80061; 83880; 84443; 84484; 85025; 85610; 85730; 86850; 86900; 86901; 93005; 93010; 99285-25; G0378; J0131; Q9967

== ENCOUNTER 2023-06-21 10:22 | Observation (INO) | payer BC ==
[2023-06-21] MEDS ORDERED: NITROGLYCERIN 2% OINTMENT - 1GM PACKET TD ONE (11:38)
[2023-06-21 12:35] LABS: BASO % 0.4 % (0-2.0); EOS % 0.9 % (0-4.5); HEMATOCRIT 38.1 % (32.4-45.2); HEMOGLOBIN 13.1 GM/dL (10.7-15.3); MCHC 34.4 g/dl (32.0-36.0); MEAN CELL VOLUME 90.3 fl (80-96); MEAN PLT VOLUME 7.7 fl (7.5-11.1); MONO % 9.3 % (3.8-10.2); NEUT % 82.4 % (42.8-82.8); PLATELET COUNT 281 10^3/uL (134-434); RBC 4.22 M/mm3 (3.60-5.2); RDW 13.4 % (11.6-15.6); WHITE BLOOD COUNT 13.9 K/mm3 (4.0-10.0)
[2023-06-21 12:43] LABS: INR 1.08 (0.83-1.09); PROTHROMBIN TIME (PATIENT) 12.2 SEC (9.7-13.0)
[2023-06-21 12:46] LABS: ACTIVATED PTT 32.2 SECONDS (25.2-36.5)
[2023-06-21 12:58] LABS: POTASSIUM 4.1 mmol/L (3.5-5.1)
[2023-06-21] MEDS ORDERED: ASPIRIN 81 MG CHEWABLE TABLETS ONE (13:00)
[2023-06-21 13:04] LABS: CALCIUM 9.2 mg/dL (8.5-10.1)
[2023-06-21 13:05] LABS: ALBUMIN 3.7 g/dl (3.4-5.0); BLOOD UREA NITROGEN 22.1 mg/dL (7-18)
[2023-06-21 13:08] LABS: CREATININE 1.1 mg/dL (0.55-1.3)
[2023-06-21 13:09] LABS: BILIRUBIN,TOTAL 0.4 mg/dL (0.2-1)
[2023-06-21 13:10] LABS: TOT PROT 7.1 g/dl (6.4-8.2)
[2023-06-21] MEDS: ASPIRIN 81 MG CHEWABLE TABLETS PO ONE (14:00)
[2023-06-21] MEDS: NITROGLYCERIN 2% OINTMENT - 1GM PACKET TD ONE (14:09)
[2023-06-21] MEDS ORDERED: CLOPIDOGREL BISULFATE 75 MG TABLET (FP) ONE (15:21)
[2023-06-21] MEDS: CLOPIDOGREL BISULFATE 75 MG TABLET (FP) PO ONE (15:25)
[2023-06-21 16:37] VITALS: BMI 26.5
[2023-06-21] MEDS ORDERED: NITROGLYCERIN SUBLINGUAL 1/150 0.4 MG TAB SL PRN (16:46)
[2023-06-21] MEDS: EMPAGLIFLOZIN (JARDIANCE) 10 MG TABLET PO ONE (18:35)
[2023-06-21] MEDS: ISOSORBIDE MONONITRATE 60 MG TAB.SR.24H (FP) PO ONE (18:42)
[2023-06-21] MEDS ORDERED: RANOLAZINE E.R. 500 MG TABLET (FP) ONE (21:15)
[2023-06-21] MEDS: RANOLAZINE E.R. 1,000 MG TABLET (FP) PO SCH (22:16)
[2023-06-21] MEDS: PANTOPRAZOLE 40 MG TABLET PO SCH (22:16)
[2023-06-21] MEDS: buPROPion HCL 100 MG TABLET PO ONE (22:17)
[2023-06-21] MEDS: VERAPAMIL HCL 120 MG TABLET PO SCH (22:52)
[2023-06-22] MEDS: LEVOTHYROXINE NA 100 MCG TABLET (FP) PO SCH (06:28)
[2023-06-22] MEDS: LEVOTHYROXINE NA 88 MCG TABLET (FP) PO SCH (06:35)
[2023-06-22 08:15] LABS: BASO % 0.4 % (0-2.0); EOS % 1.8 % (0-4.5); HEMATOCRIT 37.8 % (32.4-45.2); LYMPH % 14.5 % (8-40); MCHC 34.4 g/dl (32.0-36.0); MEAN CELL VOLUME 90.1 fl (80-96); MEAN PLT VOLUME 7.8 fl (7.5-11.1); MONO % 8.6 % (3.8-10.2); NEUT % 74.7 % (42.8-82.8); PLATELET COUNT 275 10^3/uL (134-434); RBC 4.19 M/mm3 (3.60-5.2); RDW 13.2 % (11.6-15.6); WHITE BLOOD COUNT 10.5 K/mm3 (4.0-10.0)
[2023-06-22 08:56] LABS: ALBUMIN 3.6 g/dl (3.4-5.0); BLOOD UREA NITROGEN 23.4 mg/dL (7-18); CALCIUM 9.7 mg/dL (8.5-10.1); MAGNESIUM 2.3 mg/dL (1.8-2.4)
[2023-06-22 09:00] LABS: CREATININE 1.1 mg/dL (0.55-1.3)
[2023-06-22 09:01] LABS: BILIRUBIN,TOTAL 0.3 mg/dL (0.2-1); TOT PROT 7.1 g/dl (6.4-8.2)
[2023-06-22 09:09] LABS: POTASSIUM 3.8 mmol/L (3.5-5.1)
[2023-06-22] MEDS ORDERED: RANOLAZINE E.R. 500 MG TABLET (FP) ONE ×2 (09:47→20:59)
[2023-06-22] MEDS ORDERED: ISOSORBIDE MONONITRATE 60 MG TAB.SR.24H (FP) PO SCH (10:00)
[2023-06-22] MEDS ORDERED: buPROPion HCL 100 MG TABLET PO SCH (10:00)
[2023-06-22] MEDS ORDERED: PANTOPRAZOLE 40 MG TABLET PO SCH (10:00)
[2023-06-22] MEDS: CLOPIDOGREL BISULFATE 75 MG TABLET (FP) PO SCH (11:19)
[2023-06-22] MEDS: EMPAGLIFLOZIN (JARDIANCE) 10 MG TABLET PO SCH (11:20)
[2023-06-22] MEDS: BENZOCAINE/MENTHOL 1 EACH LOZENGE MM PRN (11:20)
[2023-06-22 14:40] VITALS: RESP 18
[2023-06-22] MEDS ORDERED: ALBUTEROL SO4 2.5/IPRATROPIUM 0.5 INH SOL 3 ML VIAL.NEB. NEB ONE (14:47)
[2023-06-22] MEDS: ALBUTEROL SO4 2.5/IPRATROPIUM 0.5 INH SOL 3 ML VIAL.NEB. NEB SCH (15:00)
[2023-06-22] MEDS: buPROPion HCL 100 MG TABLET PO SCH (16:37)
[2023-06-22] MEDS: ISOSORBIDE MONONITRATE 60 MG TAB.SR.24H (FP) PO SCH (16:37)
[2023-06-22] MEDS: ROSUVASTATIN CA 10 MG TABLET PO SCH (21:28)
[2023-06-22] MEDS: VERAPAMIL HCL 120 MG E.R. TABLET PO SCH (22:51)
[2023-06-23] MEDS: VERAPAMIL HCL 120 MG TABLET PO SCH (00:03)
[2023-06-23] MEDS: guaiFENesin 200 MG/10 ML 10 ML UNIT-DOSE CUPS PO PRN (02:57)
[2023-06-23] MEDS ORDERED: RANOLAZINE E.R. 500 MG TABLET (FP) ONE (09:25)
[2023-06-23 09:26] VITALS: BP 101/67; PULSE 60; TEMP 97.7
== END 2023-06-23 11:25 | disposition home or self-care (01) ==
LOC: JER 10:22 → JERBED 14:37 → INTOOBSV 14:37 → UNDOADMOB 14:37 → J4W 16:03 → JERBED 16:03 → J4W 06-22 08:06
PROVIDERS: ADMIT Internal Medicine; ATTEND Internal Medicine
DX: R07.9 Chest pain, unspecified (principal); I25.10 Atherosclerotic heart disease of native coronary artery without angina pectoris; C34.00 Malignant neoplasm of unspecified main bronchus; E11.9 Type 2 diabetes mellitus without complications; K76.0 Fatty (change of) liver, not elsewhere classified; K21.9 Gastro-esophageal reflux disease without esophagitis; I25.2 Old myocardial infarction; Z90.49 Acquired absence of other specified parts of digestive tract; Z90.79 Acquired absence of other genital organ(s); Z86.16 Personal history of COVID-19; E06.3 Autoimmune thyroiditis; Z87.891 Personal history of nicotine dependence
CPT/HCPCS: 0241U-QW; 36415; 71045-TC-FY; 80053; 82962; 83735; 84100; 84443; 84484; 85025; 85379; 85610; 85730; 86850; 86900; 86901; 93005; 93010; 94640; 99285-25; G0378

== ENCOUNTER → 2023-08-24 | Day surgery (SDC) | payer BC | END | disposition home or self-care (01) | LOC: FMAMMOTONE 09:48 | PROVIDERS: ATTEND Family Medicine | PROC: 0HBV3ZX Excision of Bilateral Breast, Percutaneous Approach, Diagnostic (ICD-10-PCS; principal; 2023-08-24) | DX: D05.11 Intraductal carcinoma in situ of right breast (principal); N60.12 Diffuse cystic mastopathy of left breast; N60.22 Fibroadenosis of left breast; N60.32 Fibrosclerosis of left breast; N64.89 Other specified disorders of breast; R92.1 Mammographic calcification found on diagnostic imaging of breast | CPT/HCPCS: 19081; 76098-TC-FY; 87899; 88305-TC; 88342-TC; A4648 ==

== ENCOUNTER 2024-04-26 14:45 | Observation (INO) | payer BC ==
[2024-04-26] MEDS: LACTATED RINGERS SOLUTION 1000 ML INFUS.BAG IV ONE ×3 (15:54→18:22)
[2024-04-26] MEDS ORDERED: ASPIRIN 81 MG CHEWABLE TABLETS ONE (15:55)
[2024-04-26] MEDS: ASPIRIN 81 MG CHEWABLE TABLETS PO ONE (16:00)
[2024-04-26 16:03] LABS: ABSOLUTE IMMATURE GRANULOCYTES 0.08 x10^3/uL (0.0-0.031); BASOPHILS # 0.03 x10^3/uL (0.01-0.08); EOSINOPHILS # 0.17 x10^3/uL (0.04-0.36); HEMOGLOBIN 12.6 g/dL (11.2-15.7); MCHC 34.1 g/dl (32.2-35.5); MEAN CELL VOLUME 85.8 fl (79.4-94.8); MONOCYTE # 0.58 x10^3/uL (0.24-0.86); MONOCYTE % 6.7 % (4.7-12.5); PLATELET COUNT # 336 x10^3/uL (182-369)
[2024-04-26 16:07] LABS: PH,URINE 5.5 (5.0-8.0); URINE APPEARANCE CLEAR; URINE BILIRUBIN NEGATIVE (NEGATIVE); URINE COLOR YELLOW; URINE GLUCOSE (UA) 3+ (NEGATIVE); URINE KETONE TRACE (NEGATIVE); URINE LEUK ESTERASE NEGATIVE (NEGATIVE); URINE NITRITE NEGATIVE (NEGATIVE); URINE PROTEIN NEGATIVE (NEGATIVE); URINE UROBILINOGEN 0.2 mg/dL (0.2-1.0)
[2024-04-26 16:08] LABS: VENOUS BASE EXCESS -2.3 mmol/L (-2-2); VENOUS O2 SATURATION 77.1 % (70-80); VENOUS PCO2 39.2 mmHg (38-52); VENOUS PH 7.378 (7.310-7.410)
[2024-04-26 16:28] LABS: CHLORIDE 93 mmol/L (98-107); POTASSIUM 4.2 mmol/L (3.5-5.1); SODIUM 130 mmol/L (136-145)
[2024-04-26 16:31] LABS: ALBUMIN 3.9 g/dl (3.4-5.0); ANION GAP 12 mmol/L (4-13); BLOOD UREA NITROGEN 27.1 mg/dL (7-18); CALCIUM 9.5 mg/dL (8.5-10.1); CO2 25 mmol/L (21-32); MAGNESIUM 2.2 mg/dL (1.8-2.4)
[2024-04-26 16:34] LABS: CREATININE 1.2 mg/dL (0.55-1.3); GLUCOSE,RANDOM 455 mg/dL (74-106); PHOSPHOROUS 3.4 mg/dL (2.5-4.9); SGOT/AST 12 U/L (15-37); SGPT/ALT 39 U/L (13-61)
[2024-04-26 16:35] LABS: BILIRUBIN,TOTAL 0.4 mg/dL (0.2-1); TOT PROT 7.6 g/dl (6.4-8.2)
[2024-04-26 16:37] LABS: ALK PHOS 140 U/L (45-117)
[2024-04-26] MEDS ORDERED: INSULIN REGULAR HUMAN 100 UNITS/ML *VIAL ONE (19:03)
[2024-04-26] MEDS: INSULIN REGULAR HUMAN 100 UNITS/ML *VIAL SQ ONE (19:05)
[2024-04-26] MEDS ORDERED: SODIUM CHLORIDE 1,000 ML IV SCH (20:45)
[2024-04-26] MEDS: SODIUM CHLORIDE 1,000 ML IV SCH (20:57)
[2024-04-26] MEDS: INSULIN ASPART SLIDING SCALE (NOVOLOG) 1 VIAL SQ SCH (22:21)
[2024-04-26] MEDS ORDERED: INSULIN ASPART SLIDING SCALE (NOVOLOG) 1 VIAL SQ ONE (22:22)
[2024-04-26 23:53] VITALS: BMI 29.3
[2024-04-27] MEDS: RANOLAZINE E.R. 500 MG TABLET (FP) PO SCH (00:08)
[2024-04-27] MEDS: VERAPAMIL HCL 120 MG TABLET PO SCH (00:09)
[2024-04-27] MEDS: VERAPAMIL HCL 120 MG E.R. TABLET PO SCH (00:12)
[2024-04-27] MEDS: LEVOTHYROXINE NA 88 MCG TABLET (FP) PO SCH (07:31)
[2024-04-27 08:09] LABS: ABSOLUTE IMMATURE GRANULOCYTES 0.08 x10^3/uL (0.0-0.031); BASOPHILS # 0.04 x10^3/uL (0.01-0.08); EOSINOPHIL % 2.5 % (0.7-5.8); EOSINOPHILS # 0.19 x10^3/uL (0.04-0.36); HEMATOCRIT 33.8 % (34.1-44.9); HEMOGLOBIN 11.1 g/dL (11.2-15.7); MCHC 32.8 g/dl (32.2-35.5); MEAN CELL VOLUME 90.1 fl (79.4-94.8); MEAN PLT VOLUME 9.8 fl (9.4-12.3); MONOCYTE # 0.61 x10^3/uL (0.24-0.86); MONOCYTE % 8.1 % (4.7-12.5); PLATELET COUNT # 277 x10^3/uL (182-369); RDW 13.2 % (12.3-16.6)
[2024-04-27 08:27] LABS: POTASSIUM 3.9 mmol/L (3.5-5.1)
[2024-04-27 08:34] LABS: CALCIUM 8.6 mg/dL (8.5-10.1)
[2024-04-27 08:38] LABS: CREATININE 0.9 mg/dL (0.55-1.3)
[2024-04-27] MEDS: PANTOPRAZOLE 40 MG TABLET PO SCH (09:19)
[2024-04-27] MEDS ORDERED: LACTATED RINGERS SOLUTION 1,000 ML/1,000 ML INFUS.BAG IV SCH (12:15)
[2024-04-27] MEDS: ASPIRIN COATED 81 MG TABLET.EC PO SCH (16:03)
[2024-04-27] MEDS: ISOSORBIDE MONONITRATE 60 MG TAB.SR.24H (FP) PO SCH (16:03)
[2024-04-28 08:35] LABS: POTASSIUM 3.8 mmol/L (3.5-5.1)
[2024-04-28 08:40] LABS: CALCIUM 8.6 mg/dL (8.5-10.1)
[2024-04-28 08:41] LABS: BLOOD UREA NITROGEN 15.8 mg/dL (7-18); MAGNESIUM 1.9 mg/dL (1.8-2.4)
[2024-04-28 08:44] LABS: CREATININE 0.9 mg/dL (0.55-1.3); HEMATOCRIT 32.6 % (34.1-44.9); HEMOGLOBIN 10.8 g/dL (11.2-15.7); MCHC 33.1 g/dl (32.2-35.5); MEAN CELL VOLUME 88.8 fl (79.4-94.8); MEAN PLT VOLUME 10.1 fl (9.4-12.3); PLATELET COUNT # 276 x10^3/uL (182-369); RDW 13.2 % (12.3-16.6)
[2024-04-28 21:37] VITALS: BP 112/78; PULSE 63; RESP 17; TEMP 98.1
== END 2024-04-28 23:03 | disposition home or self-care (01) ==
LOC: JER 14:45 → JERBED 19:42 → J7W 23:16
PROVIDERS: ADMIT Hospitalist; ATTEND Family Medicine
PROC: 3E013VG Introduction of Insulin into Subcutaneous Tissue, Percutaneous Approach (ICD-10-PCS; principal; 2024-04-26)
PROC: 3E0337Z Introduction of Electrolytic and Water Balance Substance into Peripheral Vein, Percutaneous Approach (ICD-10-PCS; 2024-04-26)
DX: E11.65 Type 2 diabetes mellitus with hyperglycemia (principal); I12.9 Hypertensive chronic kidney disease with stage 1 through stage 4 chronic kidney disease, or unspecified chronic kidney disease; E11.40 Type 2 diabetes mellitus with diabetic neuropathy, unspecified; N18.30 Chronic kidney disease, stage 3 unspecified; E03.9 Hypothyroidism, unspecified; Z85.118 Personal history of other malignant neoplasm of bronchus and lung; I25.2 Old myocardial infarction; Z90.79 Acquired absence of other genital organ(s); Z87.891 Personal history of nicotine dependence; Z87.442 Personal history of urinary calculi
CPT/HCPCS: 36415; 80048; 80053; 81003; 82010; 82728; 82803; 82962; 83036; 83540; 83550; 83735; 83930; 84100; 84484; 85025; 85027; 87086; 93005; 93010; 99285-25; G0378